=== PATIENT | female | born 1985 | race Caucasian/White ===

== ENCOUNTER 2018-01-02 20:59 | Emergency (ER) | payer SELFPAY ==
[2018-01-02] MEDS ORDERED: Albuterol/Ipratropium 3.0-0.5 MG/3 ML Neb Soln NEB ONE (21:29)
--- NOTE | 2018-01-02 21:31 | EDM.PDOC ---
ED HPI GENERAL MEDICAL PROBLEM - General Chief Complaint: Respiratory Problem Stated Complaint: PT HAS DIFFICULTY BREATHING Time Seen by Provider: 01/02/18 21:08 - History of Present Illness INITIAL COMMENTS - FREE TEXT/NARRATIVE: HISTORY AND PHYSICAL: History of present illness: Patient is a 32-year-old female here with complaint of cough 10 days. She states it is painful to take deep breaths through her sides and back. She states she is coughing up yellow/green phlegm. She denies any fevers, chills, nausea, vomiting, diarrhea, abdominal pain. She is taking OTC dayquil without relief. She does smoke 2 cigars per day x 2 days. She denies any history of asthma. Review of systems: As per history of present illness and below otherwise all systems reviewed and negative. Past medical history: As per history of present illness and as reviewed below otherwise noncontributory. Surgical history: As per history of present illness and as reviewed below otherwise noncontributory. Social history: No reported history of drug or alcohol abuse. Family history: As per history of present illness and as reviewed below otherwise noncontributory. Physical exam: General: Patient sitting comfortably in no acute distress and nontoxic appearing. Voice is noted to be hoarse. HEENT: Atraumatic, normocephalic, pupils reactive, negative for conjunctival pallor or scleral icterus, mucous membranes moist, throat clear, neck supple, nontender, trachea midline. No meningeal signs. Lungs: mild diffuse wheezing, breath sounds equal bilaterally, chest nontender. Heart: S1S2, regular, negative for clicks, rubs, or overt murmur. Abdomen: Soft, nondistended, nontender. Negative for masses or hepatosplenomegaly. Negative for costovertebral tenderness. Pelvis: Stable nontender. Genitourinary: Deferred. Rectal: Deferred. Extremities: Atraumatic, negative for cords or calf pain. Neurovascular unremarkable. Neuro: Awake, alert, oriented. Cranial nerves II through XII unremarkable. Cerebellum unremarkable. Motor and sensory unremarkable throughout. Exam nonfocal. Notes: O2 sat 96% after DuoNeb and lung sounds clear Diagnostics: Chest x-ray Therapeutics: DuoNeb Azithromycin Prescriptions: Ventolin inhaler Impression: Acute bronchitis Plan: 1. Use ventolin inhaler and antibiotic as instructed 2. Follow up with your primary care provider 3. Return to ED as needed as discussed Definitive disposition and diagnosis as appropriate pending reevaluation and review of above. bilateral back pain Pain Score (Numeric/FACES): 7 - Related Data Allergies Allergy/AdvReac Type Severity Reaction Status Date / Time No Known Allergies Allergy Verified 01/02/18 21:13 Home Meds: Home Meds . 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 Endocrine/Metabolic: Reports: Diabetes, type II Oncologic: Reports: Cervix, Ovarian - Tobacco Use Smoking Status *Q: Current Every Day Smoker Years of Tobacco use: 2 Packs/Tins Daily: 2 - Caffeine Use Caffeine Use: Reports: Coffee, Energy Drinks, Soda, Tea - Recreational Drug Use Recreational Drug Use: No ED ROS GENERAL - Review of Systems Review Of Systems: ROS reveals no pertinent complaints other than HPI. ED EXAM, GENERAL - Physical Exam Exam: See Below (see dictation) Course - Vital Signs Last Recorded V/S: Last Vital Signs Temp 36.2 C 01/02/18 21:17 Pulse 93 01/02/18 21:53 Resp 14 01/02/18 21:53 BP 130/77 01/02/18 21:53 Pulse Ox 96 01/02/18 21:53 - Orders/Labs/Meds Orders: Active Orders 24 hr Category Date Time Status RT Aerosol Therapy [RC] ASDIRECTED Care 01/02/18 21:29 Active Chest 1V Frontal [CR] Stat Exams 01/02/18 21:22 Ordered Meds: Medications Discontinued Medications Generic Name Dose Route Start Last Admin Trade Name Freq PRN Reason Stop Dose Admin Albuterol/Ipratropium 3 ml 01/02/18 21:29 01/02/18 21:37 Duoneb 3.0-0.5 Mg/3 Ml NEB 01/02/18 21:30 3 ml ONETIME ONE Administration Departure - Departure Time of Disposition: 22:19 Disposition: Home, Self-Care 01 Condition: Good Clinical Impression: Acute bronchitis - Discharge Information Referrals: PCP,None [Primary Care Provider] - Forms: ED Department Discharge Additional Instructions: The following information is given to patients seen in the emergency department who are being discharged to home. This information is to outline your options for follow-up care. We provide all patients seen in our emergency department with a follow-up referral. The need for follow-up, as well as the timing and circumstances, are variable depending upon the specifics of your emergency department visit. If you don't have a primary care physician on staff, we will provide you with a referral. We always advise you to contact your personal physician following an emergency department visit to inform them of the circumstance of the visit and for follow-up with them and/or the need for any referrals to a consulting specialist. The emergency department will also refer you to a specialist when appropriate. This referral assures that you have the opportunity for follow-up care with a specialist. All of these measure are taken in an effort to provide you with optimal care, which includes your follow-up. Under all circumstances we always encourage you to contact your private physician who remains a resource for coordinating your care. When calling for follow-up care, please make the office aware that this follow-up is from your recent emergency room visit. If for any reason you are refused follow-up, please contact the [facility] Emergency Department at and asked to speak to the emergency department charge nurse. [facility] Primary Care [address] [place] [id number] [address] [address] 1. Use ventolin inhaler and take antibiotic as instructed 2. Follow up with your primary care provider 3. Return to ED as needed as discusse - My Orders Last 24 Hours: My Active Orders 01/02/18 21:22 Chest 1V Frontal [CR] Stat 01/02/18 21:29 RT Aerosol Therapy [RC] ASDIRECTED - Assessment/Plan Last 24 Hours: My Active Orders 01/02/18 21:22 Chest 1V Frontal [CR] Stat 01/02/18 21:29 RT Aerosol Therapy [RC] ASDIRECTED
[2018-01-02 22:32] VITALS: BP 125/82
--- NOTE | 2018-01-03 13:57 | CR ---
EXAM DATE: 01/02/18 PATIENT'S AGE: 32 Patient: ERICK STEIN Facility: [place], [place] Site . Site : 1985 Study: XRay Chest [id number]/18/2018 10:08:37 PM Ordering Physician: Doctor Toledo Final Report: Indication: Pain, shortness of breath, cough for 1 week Technique: Chest 1 view Comparison: None Findings/Impression: Normal cardiomediastinal silhouette. Minimal opacity adjacent to the right cardiac border. Consider lateral chest radiograph to exclude atelectasis or infiltrate in this region. Remainder of the lung vela and pleural spaces are clear. No osseous abnormality. Dictated by Kenia Avelar MD @ Jan 02 2018 10:17PM (Electronic Signature) Report Signed by Proxy. LAYTON
== END 2018-01-02 22:30 | disposition home or self-care (01) ==
LOC: MW.ED 20:59
DX: J20.9 Acute bronchitis, unspecified (principal); F17.210 Nicotine dependence, cigarettes, uncomplicated
CPT/HCPCS: 71045; 71045-26; 94640; 99285-25; J7620-GY

== ENCOUNTER 2018-01-15 18:03 | Emergency (ER) | payer MEDICAID ==
[2018-01-15] MEDS ORDERED: Albuterol/Ipratropium 3.0-0.5 MG/3 ML Neb Soln NEB ONE (18:17)
--- NOTE | 2018-01-15 18:33 | EDM.PDOC ---
ED HPI GENERAL MEDICAL PROBLEM - General Chief Complaint: Respiratory Problem Stated Complaint: BRONCHITIS NOT GETTING BETTER Time Seen by Provider: 01/15/18 18:33 Source of Information: Reports: Patient History Limitations: Reports: No Limitations - History of Present Illness INITIAL COMMENTS - FREE TEXT/NARRATIVE: HISTORY AND PHYSICAL: History of present illness: He shouldn't is a 32-year-old female who presents to the emergency room today with complaints of cough and chest congestion x 2 weeks. She states she was given a Z-Edward and Medrol Dosepak approximately 2 weeks ago and her symptoms have not resolved. She denies any fever, chills, chest pain, abdominal pain, nausea, vomiting, diarrhea, constipation or dysuria. Denies any chance of . Review of systems: As per history of present illness and below otherwise all systems reviewed and negative. Past medical history: As per history of present illness and as reviewed below otherwise noncontributory. Surgical history: As per history of present illness and as reviewed below otherwise noncontributory. Social history: No reported history of drug or alcohol abuse. Family history: As per history of present illness and as reviewed below otherwise noncontributory. Physical exam: General: Well-developed and well-nourished 32-year-old female. Alert and oriented. Nontoxic appearing and in no acute distress. HEENT: Atraumatic, normocephalic, pupils equal and reactive bilaterally, negative for conjunctival pallor or scleral icterus, mucous membranes moist, throat clear, neck supple, nontender, trachea midline. No drooling or trismus noted. No meningeal signs Lungs: Fine expiratory wheezing noted to posterior base on right, breath sounds equal bilaterally, chest nontender. Dry nonproductive cough noted Heart: S1S2, regular rate and rhythm without overt murmur Abdomen: Soft, nondistended, nontender. Negative for masses or hepatosplenomegaly. Negative for costovertebral tenderness. Pelvis: Stable nontender. Genitourinary: Deferred. Rectal: Deferred. Skin: Intact, warm, dry. No lesions or rashes noted. Extremities: Atraumatic, negative for cords or calf pain. Neurovascular unremarkable. Neuro: Awake, alert, oriented. Cranial nerves II through XII unremarkable. Cerebellum unremarkable. Motor and sensory unremarkable throughout. Exam nonfocal. Notes: Chest x-ray shows no evidence of pneumonia or infiltrate. Her blood pressure has come down within normal limits. Discharging patient with a prescription for Phenergan with codeine and an albuterol inhaler as she does frequently cough while here in the emergency room. His were reviewed and discussed. She voices understanding and is agreeable to plan of care. Denies any further questions or concerns at this time. Diagnostics: CXR Therapeutics: Duo Neb Prescription: Phenergan with Codiene ( #4 oz) Albuterol Inhaler Impression: Bronchitis Plan: 1. Xray shows no evidence of pneumonia. You had a duo neb and solumedrol IM while here in the ER. 2. Please take your prescription as directed. The Phenergan with codeine does cause drowsiness so do not take it while driving or needing to be functioning the house. 3. Please follow-up with your primary caregiver to 2 days. Return to the ED as needed and as discussed. Definitive disposition and diagnosis as appropriate pending reevaluation and review of above. bilateral chest Pain Score (Numeric/FACES): 8 - Related Data Allergies Allergy/AdvReac Type Severity Reaction Status Date / Time No Known Allergies Allergy Verified 01/15/18 18:11 Home Meds: Home Meds . 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 , Other (See Below) Other BARIATRIC PHYSICIAN History: preeclampesia Musculoskeletal History: Reports: None Neurological History: Reports: None Psychiatric History: Reports: None Endocrine/Metabolic History: Reports: None Hematologic History: Reports: None Immunologic History: Reports: None Oncologic (Cancer) History: Reports: None Dermatologic History: Reports: None - Infectious Disease History Infectious Disease History: Reports: Chicken Pox - Past Surgical History Head Surgeries/Procedures: Reports: None HEENT Surgical History: Reports: None Cardiovascular Surgical History: Reports: None Respiratory Surgical History: Reports: None GI Surgical History: Reports: None Female Surgical History: Reports: None Endocrine Surgical History: Reports: None Neurological Surgical History: Reports: None Musculoskeletal Surgical History: Reports: None Oncologic Surgical History: Reports: None Dermatological Surgical History: Reports: None Social & Family History - Family History HEENT: Reports: Impaired Vision OBGYN: Reports: Psychiatric: Reports: Other (See Below) Other Psychiatric Family History: Sister of a drug overdose in 2005. Endocrine/Metabolic: Reports: Diabetes, type II Oncologic: Reports: Cervix, Ovarian - Tobacco Use Smoking Status *Q: Current Every Day Smoker Years of Tobacco use: 10 Packs/Tins Daily: 1 - Caffeine Use Caffeine Use: Reports: Soda - Recreational Drug Use Recreational Drug Use: No ED ROS GENERAL - Review of Systems Review Of Systems: ROS reveals no pertinent complaints other than HPI. ED EXAM, GENERAL - Physical Exam Exam: See Below (See dictation) Course - Vital Signs Last Recorded V/S: Last Vital Signs Temp 97.6 F 01/15/18 19:32 Pulse 72 01/15/18 19:32 Resp 20 01/15/18 19:32 BP 138/82 01/15/18 19:32 Pulse Ox 98 01/15/18 19:32 - Orders/Labs/Meds Orders: Active Orders 24 hr Category Date Time Status EKG Documentation Completion [RC] STAT Care 01/15/18 18:17 Active RT Aerosol Therapy [RC] ASDIRECTED Care 01/15/18 18:17 Active Chest 2V [CR] Stat Exams 01/15/18 18:17 Taken Meds: Medications Discontinued Medications Generic Name Dose Route Start Last Admin Trade Name Freq PRN Reason Stop Dose Admin Albuterol/Ipratropium 3 ml 01/15/18 18:17 01/15/18 18:34 Duoneb 3.0-0.5 Mg/3 Ml NEB 01/15/18 18:18 3 ml ONETIME ONE Administration Methylprednisolone Sodium Succinate 125 mg 01/15/18 18:36 Solu-Medrol IVPUSH 01/15/18 18:37 ONETIME ONE Departure - Departure Time of Disposition: 19:44 Disposition: Home, Self-Care 01 Clinical Impression: Bronchitis - Discharge Information Instructions: Acute Bronchitis, Adult, [id number] Referrals: PCP,None [Primary Care Provider] - Forms: ED Department Discharge Additional Instructions: The following information is given to patients seen in the emergency department who are being discharged to home. This information is to outline your options for follow-up care. We provide all patients seen in our emergency department with a follow-up referral. The need for follow-up, as well as the timing and circumstances, are variable depending upon the specifics of your emergency department visit. If you don't have a primary care physician on staff, we will provide you with a referral. We always advise you to contact your personal physician following an emergency department visit to inform them of the circumstance of the visit and for follow-up with them and/or the need for any referrals to a consulting specialist. The emergency department will also refer you to a specialist when appropriate. This referral assures that you have the opportunity for follow-up care with a specialist. All of these measure are taken in an effort to provide you with optimal care, which includes your follow-up. Under all circumstances we always encourage you to contact your private physician who remains a resource for coordinating your care. When calling for follow-up care, please make the office aware that this follow-up is from your recent emergency room visit. If for any reason you are refused follow-up, please contact the [facility] Emergency Department at and asked to speak to the emergency department charge nurse. [facility] Primary [facility] [address] [place] [address] 1. Xray shows no evidence of pneumonia. You received Solumedrol and Duo Neb while here in the ER. 2. Please take your prescription as directed. The Phenergan with codeine does cause drowsiness so do not take it while driving or needing to be functioning the house. 3. Please follow-up with your primary caregiver to 2 days. Return to the ED as needed and as discussed. - My Orders Last 24 Hours: My Active Orders 01/15/18 18:17 EKG Documentation Completion [RC] STAT RT Aerosol Therapy [RC] ASDIRECTED Chest 2V [CR] Stat - Assessment/Plan Last 24 Hours: My Active Orders 01/15/18 18:17 EKG Documentation Completion [RC] STAT RT Aerosol Therapy [RC] ASDIRECTED Chest 2V [CR] Stat
[2018-01-15] MEDS ORDERED: methylPREDNISolone Sodium Succinate 125 MG/2 ML SDV IVPUSH ONE (18:36)
[2018-01-15] MEDS ORDERED: methylPREDNISolone Sodium Succinate 125 MG/2 ML SDV IM ONE (19:43)
[2018-01-15 20:05] VITALS: BP 141/83
--- NOTE | 2018-01-16 09:24 | CR ---
EXAM DATE: 01/15/18 PATIENT'S AGE: 32 Patient: ERICK STEIN Facility: [place], [place] Site . Site : 1985 Study: XRay Chest [id number]/1/2018 7:17:03 PM Ordering Physician: Doctor Toledo Final Report: INDICATION: Cough for 3 weeks TECHNIQUE: Chest radiograph 3 views COMPARISON: 01/02/18 FINDINGS: Mediastinum: The mediastinum is normal in appearance. The heart silhouette is normal in size and morphology. Lung: Both lungs are unremarkable in appearance. No sign of pleural effusion seen. No pneumothorax is identified. Musculoskeletal: Unremarkable for age. IMPRESSION: 1. No acute cardiopulmonary disease is seen. Dictated by: Chicho Timmons MD @ 01/15/2018 19:23:02 (Electronic Signature) Report Signed by Proxy. LAYTON
== END 2018-01-15 20:04 | disposition home or self-care (01) ==
LOC: MW.ED 18:03
DX: J40 Bronchitis, not specified as acute or chronic (principal); F17.210 Nicotine dependence, cigarettes, uncomplicated
CPT/HCPCS: 71046; 93005; 96372; 99283; J2930; J7620-GY

== ENCOUNTER 2018-12-15 13:36 | Emergency (ER) | payer MEDICAID ==
--- NOTE | 2018-12-15 13:41 | EDM.PDOC ---
ED HPI GENERAL MEDICAL PROBLEM - General Chief Complaint: Genitourinary Problem Stated Complaint: POSSIBLE UTI Time Seen by Provider: 12/15/18 13:41 Source of Information: Reports: Patient - History of Present Illness INITIAL COMMENTS - FREE TEXT/NARRATIVE: HISTORY AND PHYSICAL: History of present illness: [Patient presents with frequency and dysuria chills sweats ] Review of systems: As per history of present illness and below otherwise all systems reviewed and negative. Past medical history: As per history of present illness and as reviewed below otherwise noncontributory. Surgical history: As per history of present illness and as reviewed below otherwise noncontributory. Social history: No reported history of drug or alcohol abuse. Family history: As per history of present illness and as reviewed below otherwise noncontributory. Physical exam: HEENT: Atraumatic, normocephalic, pupils reactive, negative for conjunctival pallor or scleral icterus, mucous membranes moist, throat clear, neck supple, nontender, trachea midline. Lungs: Clear to auscultation, breath sounds equal bilaterally, chest nontender. Heart: S1S2, regular, negative for clicks, rubs, or JVD. Abdomen: Soft, nondistended, nontender. Negative for masses or hepatosplenomegaly. Negative for costovertebral tenderness. Pelvis: Stable nontender. Genitourinary: Deferred. Rectal: Deferred. Extremities: Atraumatic, negative for cords or calf pain. Neurovascular unremarkable. Neuro: Awake, alert, oriented. Cranial nerves II through XII unremarkable. Cerebellum unremarkable. Motor and sensory unremarkable throughout. Exam nonfocal. Diagnostics: [UA HCG ] Therapeutics: [Cipro ] Impression: [Dysuria ] UTI Definitive disposition and diagnosis as appropriate pending reevaluation and review of above. lower back pain Pain Score (Numeric/FACES): 4 - Related Data Allergies Allergy/AdvReac Type Severity Reaction Status Date / Time No Known Allergies Allergy Verified 01/15/18 18:11 Home Meds: Home Meds . 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 History: preeclampesia Musculoskeletal History: Reports: None Neurological History: Reports: None Psychiatric History: Reports: None Endocrine/Metabolic History: Reports: None Hematologic History: Reports: None Immunologic History: Reports: None Oncologic (Cancer) History: Reports: None Dermatologic History: Reports: None - Infectious Disease History Infectious Disease History: Reports: Chicken Pox - Past Surgical History Head Surgeries/Procedures: Reports: None HEENT Surgical History: Reports: None Cardiovascular Surgical History: Reports: None Respiratory Surgical History: Reports: None GI Surgical History: Reports: None Female Surgical History: Reports: None Endocrine Surgical History: Reports: None Neurological Surgical History: Reports: None Musculoskeletal Surgical History: Reports: None Oncologic Surgical History: Reports: None Dermatological Surgical History: Reports: None Social & Family History - Family History HEENT: Reports: Impaired Vision OBGYN: Reports: Psychiatric: Reports: Other (See Below) Other Psychiatric Family History: Sister of a drug overdose in 2005. Endocrine/Metabolic: Reports: Diabetes, type II Oncologic: Reports: Cervix, Ovarian - Caffeine Use Caffeine Use: Reports: Soda ED ROS GENERAL - Review of Systems Review Of Systems: See Below ED EXAM, GENERAL - Physical Exam Exam: See Below Course - Vital Signs Last Recorded V/S: Last Vital Signs Temp 96.0 F 12/15/18 13:53 Pulse 89 12/15/18 13:53 Resp 18 12/15/18 13:53 BP 177/120 H 12/15/18 13:53 Pulse Ox 96 12/15/18 13:53 - Orders/Labs/Meds Orders: Active Orders 24 hr Category Date Time Status CULTURE URINE [RM] Stat Lab 12/15/18 13:50 Received UA W/MICROSCOPIC [URIN] Stat Lab 12/15/18 13:50 Results Labs: Laboratory Tests 12/15/18 12/15/18 Range/Units 13:50 13:50 Urine Color YELLOW Urine Appearance SLT CLOUDY Urine pH 5.5 (5.0-8.0) Ur Specific [place] >= 1.030 (1.001-1.035) Urine Protein NEGATIVE (NEGATIVE) mg/dL Urine Glucose (UA) NEGATIVE (NEGATIVE) mg/dL Urine Ketones TRACE H (NEGATIVE) mg/dL Urine Occult Blood SMALL H (NEGATIVE) Urine Nitrite POSITIVE H (NEGATIVE) Urine Bilirubin SMALL H (NEGATIVE) Urine Urobilinogen 0.2 (<2.0) EU/dL Ur Leukocyte Esterase NEGATIVE (NEGATIVE) Urine HCG, Qual NEGATIVE (NEGATIVE) Departure - Departure Time of Disposition: 14:30 Disposition: Home, Self-Care 01 Condition: Good Clinical Impression: UTI (urinary tract infection) - Discharge Information Forms: ED Department Discharge Additional Instructions: The following information is given to patients seen in the emergency department who are being discharged to home. This information is to outline your options for follow-up care. We provide all patients seen in our emergency department with a follow-up referral. The need for follow-up, as well as the timing and circumstances, are variable depending upon the specifics of your emergency department visit. If you don't have a primary care physician on staff, we will provide you with a referral. We always advise you to contact your personal physician following an emergency department visit to inform them of the circumstance of the visit and for follow-up with them and/or the need for any referrals to a consulting specialist. The emergency department will also refer you to a specialist when appropriate. This referral assures that you have the opportunity for follow-up care with a specialist. All of these measure are taken in an effort to provide you with optimal care, which includes your follow-up. Under all circumstances we always encourage you to contact your private physician who remains a resource for coordinating your care. When calling for follow-up care, please make the office aware that this follow-up is from your recent emergency room visit. If for any reason you are refused follow-up, please contact the [facility] emergency department at and asked to speak to the emergency department charge nurse. - My Orders Last 24 Hours: My Active Orders 12/15/18 13:50 CULTURE URINE [RM] Stat UA W/MICROSCOPIC [URIN] Stat - Assessment/Plan Last 24 Hours: My Active Orders 12/15/18 13:50 CULTURE URINE [RM] Stat UA W/MICROSCOPIC [URIN] Stat
[2018-12-15 14:31] VITALS: BP 176/103
== END 2018-12-15 14:38 | disposition home or self-care (01) ==
LOC: MW.ED 13:36
DX: N39.0 Urinary tract infection, site not specified (principal)
CPT/HCPCS: 81001; 81025; 87086; 87088; 87186; 99282; 99283

== ENCOUNTER 2018-12-19 18:47 | Emergency (ER) | payer MEDICAID ==
[2018-12-19 19:19] VITALS: BP 178/106
--- NOTE | 2018-12-19 20:13 | EDM.PDOC ---
ED HPI GENERAL MEDICAL PROBLEM - General Chief Complaint: Back Pain or Injury Stated Complaint: BACK PAIN Time Seen by Provider: 12/19/18 20:10 Source of Information: Reports: Patient - History of Present Illness INITIAL COMMENTS - FREE TEXT/NARRATIVE: HISTORY AND PHYSICAL: History of present illness: []With history of sciatic distribution pain being treated for recent UTI presents with low back pain or consistent with sciatic distribution pain she does have clear muscle spasm of the left paraspinous muscles pain radiates around the level of by Dr. no radiation down the leg no fever nausea vomiting chills sweats no urinary symptoms no injury or trauma Review of systems: As per history of present illness and below otherwise all systems reviewed and negative. Past medical history: As per history of present illness and as reviewed below otherwise noncontributory. Surgical history: As per history of present illness and as reviewed below otherwise noncontributory. Social history: No reported history of drug or alcohol abuse. Family history: As per history of present illness and as reviewed below otherwise noncontributory. Physical exam: HEENT: Atraumatic, normocephalic, pupils reactive, negative for conjunctival pallor or scleral icterus, mucous membranes moist, throat clear, neck supple, nontender, trachea midline. Lungs: Clear to auscultation, breath sounds equal bilaterally, chest nontender. Heart: S1S2, regular, negative for clicks, rubs, or JVD. Abdomen: Soft, nondistended, nontender. Negative for masses or hepatosplenomegaly. Negative for costovertebral tenderness. Pelvis: Stable nontender. Genitourinary: Deferred. Rectal: Deferred. Extremities: Atraumatic, negative for cords or calf pain. Neurovascular unremarkable. Neuro: Awake, alert, oriented. Cranial nerves II through XII unremarkable. Cerebellum unremarkable. Motor and sensory unremarkable throughout. Exam nonfocal. Diagnostics: [UA ] Therapeutics: [Toradol Flexeril Continue Cipro day 4 10 ] Impression: [ UTI on Cipro day 4 10, sensitivity proven Sciatic distribution pain on the left Muscle spasm left paraspinous muscles] Definitive disposition and diagnosis as appropriate pending reevaluation and review of above. Lower Back Pain Score (Numeric/FACES): 10 - Related Data Allergies Allergy/AdvReac Type Severity Reaction Status Date / Time No Known Allergies Allergy Verified 12/19/18 19:12 Home Meds: Home Meds Ciprofloxacin HCl [Cipro] 500 mg PO BID 12/19/18 [History] Fluconazole [Diflucan] 150 mg PO DAILY PRN 12/19/18 [History] Past Medical History - Past Health History Medical/Surgical History: Denies Medical/Surgical History HEENT History: Reports: None Cardiovascular History: Reports: None Respiratory History: Reports: None, Bronchitis, Recurrent Gastrointestinal History: Reports: None Genitourinary History: Reports: Pyelonephritis, UTI, Recurrent 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: , 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 , Other (See Below) Other FMD TEACHER History: preeclampesia Musculoskeletal History: Reports: None Neurological History: Reports: None Psychiatric History: Reports: None Endocrine/Metabolic History: Reports: None Hematologic History: Reports: None Immunologic History: Reports: None Oncologic (Cancer) History: Reports: None Dermatologic History: Reports: None - Infectious Disease History Infectious Disease History: Reports: Chicken Pox - Past Surgical History Head Surgeries/Procedures: Reports: None HEENT Surgical History: Reports: None Cardiovascular Surgical History: Reports: None Respiratory Surgical History: Reports: None GI Surgical History: Reports: None Female Surgical History: Reports: None Endocrine Surgical History: Reports: None Neurological Surgical History: Reports: None Musculoskeletal Surgical History: Reports: None Oncologic Surgical History: Reports: None Dermatological Surgical History: Reports: None Social & Family History - Family History Family Medical History: Noncontributory HEENT: Reports: Impaired Vision OBGYN: Reports: Psychiatric: Reports: Other (See Below) Other Psychiatric Family History: Sister of a drug overdose in 2005. Endocrine/Metabolic: Reports: Diabetes, type II Oncologic: Reports: Cervix, Ovarian - Tobacco Use Smoking Status *Q: Current Every Day Smoker Years of Tobacco use: 1 Packs/Tins Daily: 0 Used Tobacco, but Quit: No Second Hand Smoke Exposure: No - Caffeine Use Caffeine Use: Reports: Soda - Recreational Drug Use Recreational Drug Use: No ED ROS GENERAL - Review of Systems Review Of Systems: See Below ED EXAM, GENERAL - Physical Exam Exam: See Below Course - Vital Signs Last Recorded V/S: Last Vital Signs Temp 99.2 F 12/19/18 19:14 Pulse 86 12/19/18 19:14 Resp 14 12/19/18 19:14 BP 178/106 H 12/19/18 19:14 Pulse Ox 97 12/19/18 19:14 - Orders/Labs/Meds Labs: Laboratory Tests 12/19/18 Range/Units 19:12 Urine Color YELLOW Urine Appearance CLEAR Urine pH 5.5 (5.0-8.0) Ur Specific Mcallister >= 1.030 (1.001-1.035) Urine Protein NEGATIVE (NEGATIVE) mg/dL Urine Glucose (UA) NEGATIVE (NEGATIVE) mg/dL Urine Ketones NEGATIVE (NEGATIVE) mg/dL Urine Occult Blood TRACE-INTACT H (NEGATIVE) Urine Nitrite NEGATIVE (NEGATIVE) Urine Bilirubin NEGATIVE (NEGATIVE) Urine Urobilinogen 0.2 (<2.0) EU/dL Ur Leukocyte Esterase NEGATIVE (NEGATIVE) Urine RBC 0-2 (0-2/HPF) Urine WBC 0-2 (0-5/HPF) Ur Epithelial Cells OCCASIONAL (NONE-FEW) Urine Bacteria RARE (NEGATIVE) Urine Mucus MODERATE (NONE-MOD) Departure - Departure Time of Disposition: 20:12 Disposition: Home, Self-Care 01 Condition: Good Clinical Impression: Spasm of lumbar paraspinous muscle, UTI, Urinary tract infectious disease - Discharge Information Referrals: PCP,None [Primary Care Provider] - Additional Instructions: The following information is given to patients seen in the emergency department who are being discharged to home. This information is to outline your options for follow-up care. We provide all patients seen in our emergency department with a follow-up referral. The need for follow-up, as well as the timing and circumstances, are variable depending upon the specifics of your emergency department visit. If you don't have a primary care physician on staff, we will provide you with a referral. We always advise you to contact your personal physician following an emergency department visit to inform them of the circumstance of the visit and for follow-up with them and/or the need for any referrals to a consulting specialist. The emergency department will also refer you to a specialist when appropriate. This referral assures that you have the opportunity for follow-up care with a specialist. All of these measure are taken in an effort to provide you with optimal care, which includes your follow-up. Under all circumstances we always encourage you to contact your private physician who remains a resource for coordinating your care. When calling for follow-up care, please make the office aware that this follow-up is from your recent emergency room visit. If for any reason you are refused follow-up, please contact the [facility] emergency department at and asked to speak to the emergency department charge nurse.
== END 2018-12-19 20:21 | disposition home or self-care (01) ==
LOC: MW.ED 18:47
DX: M62.830 Muscle spasm of back (principal); M54.42 Lumbago with sciatica, left side; N39.0 Urinary tract infection, site not specified; F17.200 Nicotine dependence, unspecified, uncomplicated
CPT/HCPCS: 81001; 99283

== ENCOUNTER 2018-12-31 17:25 | Emergency (ER) | payer MEDICAID ==
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
[2018-12-31 18:09] VITALS: BP 136/91; PULSE 130
--- NOTE | 2018-12-31 18:44 | CR ---
Indication: Pain. Technique: Two views of the left knee were obtained. Comparison: None Findings: A fracture of the proximal tibia is identified. Small joint effusion is identified. No acute fracture or subluxation is identified. Impression: Fracture the proximal tibia Dictated by Danielle Trujillo MD @ Dec 31 2018 6:43PM Signed by Dr. Danielle Trujillo @ Dec 31 2018 6:43PM
[2018-12-31] MEDS ORDERED: Acetaminophen/HYDROcodone 325-5 MG Tab PO ONE (18:58)
--- NOTE | 2018-12-31 20:25 | CT ---
Indication: Fracture of the proximal tibia. Knee pain. Technique: CT examination of the left knee is performed without contrast enhancement using spiral technique. 0.8 millimeter thick axial and 2.0 millimeter thick sagittal and coronal images are obtained from the data. Please note that all CT scans at this facility use dose modulation, iterative reconstruction, and/or weight-based dosing when appropriate to reduce radiation dose to as low as reasonably achievable. Comparison: Plain films of the left knee from earlier today. Findings: There is a comminuted mildly depressed fracture of the lateral tibial plateau with up to 5 millimeters of depression of the lateral aspect of the anterior margin of the tibial plateau. The majority of the tibial plateau is less depressed, between 1 and 2 millimeters. Several fracture lines involve the lateral aspect of the tibial spine without displacement of the fracture fragments. There is a nondisplaced oblique fracture line which passes through the medial aspect of the proximal tibial shaft, reaching the lateral tibial plateau fracture complex via the posterior cortex of the proximal tibia. There is a mild suprapatellar joint effusion with fat fluid level. There is no sign of fracture of the lateral femoral condyle. There is anatomic alignment of the patella. No definite abnormality of the anterior or posterior cruciate ligaments is seen. Impression: Acute, mildly depressed, comminuted fracture of the lateral tibial plateau with fracture lines extending into the lateral aspect of the tibial spine. Fracture line extending across the posterior proximal tibia, PICC extending obliquely and inferiorly into the medial proximal tibial shaft. Mild suprapatellar joint effusion with fat fluid level. Please note that all CT scans at this facility use dose modulation, iterative reconstruction, and/or weight-based dosing when appropriate to reduce radiation dose to as low as reasonably achievable. Dictated by Fadi Arellano MD @ Dec 31 2018 8:17PM Signed by Dr. Fadi Arellano @ Dec 31 2018 8:24PM
== END 2018-12-31 20:14 | disposition home or self-care (01) ==
LOC: MW.ED 17:25
DX: S82.142A Displaced bicondylar fracture of left tibia, initial encounter for closed fracture (principal); Y04.0XXA Assault by unarmed brawl or fight, initial encounter
CPT/HCPCS: 73562; 73700; 99284; A9270

== ENCOUNTER 2019-01-09 17:36 | Emergency (ER) | payer MEDICAID ==
--- NOTE | 2019-01-09 17:54 | EDM.PDOC ---
ED HPI GENERAL MEDICAL PROBLEM - General Chief Complaint: Lower Extremity Injury/Pain Stated Complaint: LEFT KNEE BROKEN Time Seen by Provider: 01/09/19 17:40 - History of Present Illness INITIAL COMMENTS - FREE TEXT/NARRATIVE: HISTORY AND PHYSICAL: History of present illness: Patient is a 33-year-old white female who is status post tibial plateau fracture from December 31 is been on crutches and knee immobilizer presents for medication refill patient states she's out of pain medication and has not had her orthopedic follow-up yet. She denies fever chills nausea vomiting or other complaints Review of systems: As per history of present illness and below otherwise all systems reviewed and negative. Past medical history: As per history of present illness and as reviewed below otherwise noncontributory. Surgical history: As per history of present illness and as reviewed below otherwise noncontributory. Social history: No reported history of drug or alcohol abuse. Family history: As per history of present illness and as reviewed below otherwise noncontributory. Physical exam: HEENT: Atraumatic, normocephalic, pupils reactive, negative for conjunctival pallor or scleral icterus, mucous membranes moist, throat clear, neck supple, nontender, trachea midline. Lungs: Clear to auscultation, breath sounds equal bilaterally, chest nontender. Heart: S1S2, regular, negative for clicks, rubs, or JVD. Abdomen: Soft, nondistended, nontender. Negative for masses or hepatosplenomegaly. Negative for costovertebral tenderness. Pelvis: Stable nontender. Genitourinary: Deferred. Rectal: Deferred. Extremities: Neurovascular exam unremarkable upon arrival knee immobilizer in place. Neuro: Awake, alert, oriented. Cranial nerves II through XII unremarkable. Cerebellum unremarkable. Motor and sensory unremarkable throughout. Exam nonfocal. Diagnostics: None Therapeutics: None Impression: A 1 history of tibial plateau fracture #2 medication request Definitive disposition and diagnosis as appropriate pending reevaluation and review of above. - Related Data Allergies Allergy/AdvReac Type Severity Reaction Status Date / Time No Known Allergies Allergy Verified 12/19/18 19:12 Home Meds: Home Meds Ciprofloxacin HCl [Cipro] 500 mg PO BID 12/19/18 [History] Fluconazole [Diflucan] 150 mg PO DAILY PRN 12/19/18 [History] Past Medical History - Past Health History Medical/Surgical History: Denies Medical/Surgical History HEENT History: Reports: None Cardiovascular History: Reports: None Respiratory History: Reports: None, Bronchitis, Recurrent Gastrointestinal History: Reports: None Genitourinary History: Reports: Pyelonephritis, UTI, Recurrent RADIOLOGY INTERVENTIONAL PHYSICIAN History: Reports: , Therapeutic , Other (See Below) Other RADIOLOGY INTERVENTIONAL PHYSICIAN History: preeclampesia Musculoskeletal History: Reports: None Neurological History: Reports: None Psychiatric History: Reports: None Endocrine/Metabolic History: Reports: None Hematologic History: Reports: None Immunologic History: Reports: None Oncologic (Cancer) History: Reports: None Dermatologic History: Reports: None - Infectious Disease History Infectious Disease History: Reports: Chicken Pox - Past Surgical History Head Surgeries/Procedures: Reports: None HEENT Surgical History: Reports: None Cardiovascular Surgical History: Reports: None Respiratory Surgical History: Reports: None GI Surgical History: Reports: None Female Surgical History: Reports: None Endocrine Surgical History: Reports: None Neurological Surgical History: Reports: None Musculoskeletal Surgical History: Reports: None Oncologic Surgical History: Reports: None Dermatological Surgical History: Reports: None Social & Family History - Family History Family Medical History: Noncontributory HEENT: Reports: Impaired Vision OBGYN: Reports: Psychiatric: Reports: Other (See Below) Other Psychiatric Family History: Sister of a drug overdose in 2005. Endocrine/Metabolic: Reports: Diabetes, type II Oncologic: Reports: Cervix, Ovarian - Caffeine Use Caffeine Use: Reports: Soda Review of Systems - Review of Systems Review Of Systems: ROS reveals no pertinent complaints other than HPI. ED EXAM, GENERAL - Physical Exam Exam: See Below (See dictation) Departure - Departure Time of Disposition: 17:53 Disposition: Home, Self-Care 01 Condition: Good Clinical Impression: Tibial plateau fracture, Encounter for medical screening examination - Discharge Information Referrals: Bernard Reeves MD [Primary Care Provider] - Additional Instructions: The following information is given to patients seen in the emergency department who are being discharged to home. This information is to outline your options for follow-up care. We provide all patients seen in our emergency department with a follow-up referral. The need for follow-up, as well as the timing and circumstances, are variable depending upon the specifics of your emergency department visit. If you don't have a primary care physician on staff, we will provide you with a referral. We always advise you to contact your personal physician following an emergency department visit to inform them of the circumstance of the visit and for follow-up with them and/or the need for any referrals to a consulting specialist. The emergency department will also refer you to a specialist when appropriate. This referral assures that you have the opportunity for followup care with a specialist. All of these measure are taken in an effort to provide you with optimal care, which includes your followup. Under all circumstances we always encourage you to contact your private physician who remains a resource for coordinating your care. When calling for followup care, please make the office aware that this follow-up is from your recent emergency room visit. If for any reason you are refused follow-up, please contact the [facility] emergency department at and asked to speak to the emergency department charge nurse. Ultram as prescribed follow-up orthopedic surgery as discussed continue the immobilizer and crutches as directed and return as needed as discussed
[2019-01-09 18:07] VITALS: BP 156/111; PULSE 95
== END 2019-01-09 18:05 | disposition home or self-care (01) ==
LOC: MW.ED 17:36
DX: S82.144D Nondisplaced bicondylar fracture of right tibia, subsequent encounter for closed fracture with routine healing (principal); Z76.0 Encounter for issue of repeat prescription; Y04.8XXD Assault by other bodily force, subsequent encounter
CPT/HCPCS: 99283

== ENCOUNTER 2019-06-08 16:26 | Emergency (ER) | payer SELFPAY | END 2019-06-08 16:27 | disposition home or self-care (01) | LOC: MW.ED 16:26 | DX: Z53.21 Procedure and treatment not carried out due to patient leaving prior to being seen by health care provider (principal) ==